=== PATIENT | male | born 1955 | race Caucasian/White ===

== ENCOUNTER → 2022-01-06 | Outpatient (CLI) | payer MEDICARE, OTHER | END | disposition home or self-care (01) | LOC: PLD 09:07 → LAB 09:07 → LAB SHORT 09:07 | DX: L08.89 Other specified local infections of the skin and subcutaneous tissue (principal) | CPT/HCPCS: 88305 ==

== ENCOUNTER 2024-09-27 14:16 | Emergency (ER) | payer MEDICARE, OTHER ==
[~2024-09-27] VITALS: Ht 185.4 cm; Wt 89.8 kg
[2024-09-27 15:00] VITALS: BP 157/94
[2024-09-27 15:29] LABS: BASOPHILS ABSOLUTE AUTO 0.07 K/mm3 (0.00-0.23); BASOPHILS PERCENT AUTO 1 % (0-2); EOSINOPHILS ABSOLUTE AUTO 0.31 K/mm3 (0.00-0.68); EOSINOPHILS PERCENT AUTO 4 % (0-6); Hematocrit 48.7 % (37.0-53.0); Hemoglobin 16.2 g/dL (13.5-17.5); IMMATURE GRAN ABSOLUTE AUTO 0.03 K/mm3 (0.00-0.10); IMMATURE GRAN PERCENT AUTO 0 % (0-1); LYMPHOCYTES PERCENT AUTO 22 % (21-46); MONOCYTES ABSOLUTE AUTO 0.56 K/mm3 (0.16-1.47); MONOCYTES PERCENT AUTO 8 % (4-13); Mean Corpuscular HGB 30.6 pg (26.0-34.0); Mean Corpuscular HGB Conc 33.3 g/dL (31.5-36.5); Mean Corpuscular Volume 92 fL (80-100); Mean Platelet Volume 8.7 fL (9.1-12.4); NEUTROPHILS ABSOLUTE AUTO 4.75 K/mm3 (1.96-9.15); NEUTROPHILS PERCENT AUTO 65 % (41-73); Platelet Count 336 K/mm3 (150-400); RDW Coefficient Variation 14.1 % (11.7-14.2); RDW Standard Deviation 48.6 fL (35.1-46.3); White Blood Cell Count 7.32 K/mm3 (4.00-11.30)
[2024-09-27 15:52] LABS: Albumin, Blood 3.4 g/dL (3.4-5.0); Albumin/Globulin Ratio 0.8 (0.8-1.8); Bilirubin, Total 0.5 mg/dL (0.1-1.0); Bun/Creatinine Ratio 12.3 (12.0-20.0); Calcium, Blood 8.4 mg/dL (8.5-10.1); Creatinine, Blood 1.22 mg/dL (0.60-1.20); Globulin, Blood 4.5 g/dL (2.2-4.0); Potassium, Blood 4.4 mmol/L (3.5-5.5); Total Protein, Blood 7.9 g/dL (6.4-8.2)
[2024-09-27] MEDS ORDERED: DOXY100 PO (20:33)
[2024-09-27] MEDS ORDERED: IBUP600 PO (20:33)
[2024-09-27] MEDS ORDERED: Acetaminophen 500 MG Tab PO ONE (20:35)
[2024-09-27] MEDS ORDERED: Ibuprofen 600 MG Tab PO ONE (20:35)
[2024-09-27] MEDS ORDERED: Doxycycline Hyclate 100 MG TAB PO ONE (20:35)
== END 2024-09-27 20:55 | disposition home or self-care (01) ==
LOC: ER 14:16
PROVIDERS: Student in an Organized Health Care Education/Training Program
DX: J90 Pleural effusion, not elsewhere classified (principal)
CPT/HCPCS: 36415; 71260; 80053; 85025; 99284-25; A9270; Q9967

== ENCOUNTER → 2025-06-25 | Outpatient (CLI) | payer MEDICARE, OTHER ==
[~2025-06-25] MED LIST: DOXY100 PO; IBUP600 PO
== END ==
LOC: LAB SHORT 13:35 → LAB 13:35
DX: R05.8 Other specified cough (principal)
CPT/HCPCS: 87070; 87077; 87186; 87205